=== PATIENT | male | born 1940 | race Asian ===

== ENCOUNTER 2018-08-26 12:08 | Emergency (ER) | payer MEDICARE ==
[~2018-08-26] VITALS: Ht 170.2 cm; Wt 796.1 kg
[2018-08-26 12:18] VITALS: Ht 170.2 cm; Wt 796.1 kg
[2018-08-26 13:08] LABS: BASOPHIL % 0.5 % (0-2); PLATELET COUNT 199 x10^3mcL (130-400); RED CELL DISTRIBUTION WIDTH 13.1 % (11.5-14.5)
[2018-08-26 13:13] LABS: CALCIUM 9.1 mg/dL (8.5-10.1); CARBON DIOXIDE 27.3 mmol/L (21-32); CHLORIDE SERUM 106 mmol/L (98-107); CREATININE SERUM 1.3 mg/dL (0.7-1.3); GLUCOSE SERUM 111 mg/dL (74-106); POTASSIUM SERUM 3.9 mmol/L (3.5-5.1); SODIUM SERUM 143 mmol/L (136-145)
[2018-08-26 13:17] LABS: ALKALINE PHOSPHATASE 40 U/L (46-116); ALT/SGPT 19 U/L (16-63); AST/SGOT 13 U/L (15-37); BILIRUBIN TOTAL 0.72 mg/dL (0.20-1.00)
[2018-08-26 13:18] LABS: ALBUMIN 3.2 g/dL (3.4-5.0)
[2018-08-26 14:49] VITALS: BP 144/81
== END 2018-08-26 14:50 | disposition home or self-care (01) ==
LOC: ED 12:08
PROVIDERS: Emergency Medicine
DX: G89.29 Other chronic pain (principal); R07.89 Other chest pain; R42 Dizziness and giddiness; I10 Essential (primary) hypertension; Z85.46 Personal history of malignant neoplasm of prostate
CPT/HCPCS: 36415; Q0092